=== PATIENT | male | born 1960 | race Caucasian/White ===

== ENCOUNTER 2020-05-07 15:14 | Emergency (ER) | payer SELFPAY ==
[~2020-05-07] VITALS: Ht 177.8 cm; Wt 79.4 kg
[2020-05-07] MEDS ORDERED: ONDANSETRON HCL INJ 2MG/ML 2ML 2 MG/ML VIAL IV STA (15:30)
[2020-05-07] MEDS ORDERED: MORPHINE SULFATE 2 MG/ML SYR 1ML IV STA (15:30)
--- NOTE | 2020-05-07 16:17 | Diagnostic Imaging Report ---
X-ray 3 views of the hand. HISTORY: Pain. COMPARISON: None available. FINDINGS/IMPRESSION: There is dislocation of the small finger proximal interphalangeal joint. Intra-articular osseous fragments may represent associated fractures. Mild regional soft tissue swelling around the dislocation. Signed by: Rob Gamboa MD on 05/07/2020 4:14 PM
--- NOTE | 2020-05-07 17:18 | Diagnostic Imaging Report ---
X-ray : 3 views of the left small finger. HISTORY: Follow-up Finger dislocation. COMPARISON: None available. FINDINGS/IMPRESSION: Close reduction of dislocated small finger proximal interphalangeal joint now in anatomic alignment. There is curvilinear cortical fragment seen on the oblique view which likely represents associated fracture. Signed by: Rob Gamboa MD on 05/07/2020 5:15 PM
--- NOTE | 2020-05-07 17:35 | Emergency Department Note ---
History of Present Illnes History of Present Illness Chief Complaint: General Medicine Complaints History of Present Illness This is a 60 year old male Patient in from home with complaints of left 5th digit pain that started about 20 minutes prior to arrival. Patient reports that he was playing football with a family member and he went to catch a ball that was thrown quite hard and his finger got in the way. Patient's left 5th digit is bent at an unnatural angle. No bruising or broken skin noted. Patient rates pain 9/10. Historian: Patient Arrival Mode: [employer] Required: No Onset (how long ago): minute(s) Location: LEFT 5TH FINGER Quality: PAIN Radiation: Reports non-radiation Severity: severe Onset quality: sudden Timing of current episode: constant Chronicity: new Context: Reports trauma/injury; Denies recent illness Relieving factors: none Exacerbating factors: none Associated symptoms: Reports denies other symptoms Past Medical/Family History Physician Review I have reviewed the patient's past medical and family history. Any updates have been documented here. Past Medical History Recent Fever: No Clinical Suspicion of Infectio: No New/Unexplained Change in Ment: No Past Medical History: Kidney Stones, Hyperlipedemia Other Surgery: prostate surgery Social History Smoking Cessation: Never Smoker Counseling Performed: No Alcohol Use: Occasional Any Illegal Drug Use: No TB Exposure/Symptoms: No Physically hurt or threatened: No Family History Family history of heart diseas: No Other Any Pre-Existing Lines (PICC,: No Review of Systems Review of Systems Constitutional: Reports no symptoms EENTM: Reports no symptoms Cardiovascular: Reports no symptoms Respiratory: Reports no symptoms Gastrointestinal: Reports no symptoms Genitourinary: Reports no symptoms Musculoskeletal: Reports as per HPI Integumentary: Reports no symptoms Neurological: Reports no symptoms Psychological: Reports no symptoms Endocrine: Reports no symptoms Hematological/Lymphatic: Reports no symptoms Physical Exam Related Data Allergies: Coded Allergies: No Known Allergies (Unverified , 05/07/20) Triage Vital Signs Vital Signs Date Time Temp Pulse Resp B/P (MAP) Pulse Ox O2 Delivery O2 Flow Rate FiO2 05/07/20 15:21 98.1 104 17 157/92 100 Room Air Vital signs reviewed: Yes Physical Exam CONSTITUTIONAL Constitutional: Present well-developed, Present well-nourished HENT HENT: Present normocephalic, Present atraumatic, Present oropharynx clear/moist, Present nose normal HENT L/R: Present left ext ear normal, Present right ext ear normal EYES Eyes: Reports PERRL, Reports conjunctivae normal NECK Neck: Present ROM normal PULMONARY Pulmonary: Present effort normal, Present breath sounds normal CARDIOVASCULAR Cardiovascular: Present regular rhythm, Present heart sounds normal, Present capillary refill normal, Present normal rate GASTROINTESTINAL Abdominal: Present soft, Present nontender, Present bowel sounds normal GENITOURINARY Genitourinary: Present exam deferred SKIN Skin: Present warm, Present dry MUSCULOSKELETAL Musculoskeletal: Present other (LEFT 5TH FINGER WITH ANGULATION LATERALLY AT PIP JOINT C/W DISLOCATION, DECR ROM AT THAT JOINT) NEUROLOGICAL Neurological: Present alert, Present oriented x 3, Present no gross motor or sensory deficits PSYCHOLOGICAL Psychological: Present mood/affect normal, Present judgement normal Results Imaging Imaging results reviewed: Yes Impressions X-ray 3 views of the hand. HISTORY: Pain. COMPARISON: None available. FINDINGS/IMPRESSION: There is dislocation of the small finger proximal interphalangeal joint. Intra-articular osseous fragments may represent associated fractures. Mild regional soft tissue swelling around the dislocation. Signed by: Rob Gamboa MD on 05/07/2020 4:14 PM X-ray : 3 views of the left small finger. HISTORY: Follow-up Finger dislocation. COMPARISON: None available. FINDINGS/IMPRESSION: Close reduction of dislocated small finger proximal interphalangeal joint now in anatomic alignment. There is curvilinear cortical fragment seen on the oblique view which likely represents associated fracture. Signed by: Rob Gamboa MD on 05/07/2020 5:15 PM Procedures Orthopedic Joint Reduction Joint: Joint #1 (LEFT 5TH PIP) Time out performed: Yes Side: left Joint reduction location: finger Shoulder technique used (if ap: traction/counter-traction Post-reduction neuor exam: intact Post-reduction vascular exam: intact Post-reduction xrays obtained: Yes Xray results: reduced Splint applied: Yes Patient tolerated procedure: no complications Assessment & Plan Medical Decision Making MDM XRAY R/O FX VS DISLOCATION Reassessment Reassessment F/U DR MASSEY TOMORROW, SPLINT, TYL/MOTRIN Assessment & Plan Final Impression: (1) Dislocation of proximal interphalangeal joint of left little finger Depart Disposition: HOME, SELF-CARE Last Vital Signs Date Time Temp Pulse Resp B/P (MAP) Pulse Ox O2 Delivery O2 Flow Rate FiO2 05/07/20 15:21 98.1 104 17 157/92 100 Room Air Medications in the ED Morphine Sulfate 4 mg ONCE STAT IV Last administered on 05/07/20at 15:45; Admin Dose 4 MG; Start 05/07/20 at 15:30; Stop 05/07/20 at 15:35; Status DC Ondansetron HCl 4 mg ONCE STAT IV Last administered on 05/07/20at 15:45; Admin Dose 4 MG; Start 05/07/20 at 15:30; Stop 05/07/20 at 15:35; Status DC NIKKI PERRY MD May 07, 2020 17:35
== END 2020-05-07 17:23 | disposition home or self-care (01) ==
LOC: ER 15:34
DX: S63.287A Dislocation of proximal interphalangeal joint of left little finger, initial encounter (principal); W21.01XA Struck by football, initial encounter; Y93.61 Activity, american tackle football; Y92.008 Other place in unspecified non-institutional (private) residence as the place of occurrence of the external cause; E78.5 Hyperlipidemia, unspecified; Z87.442 Personal history of urinary calculi
CPT/HCPCS: 26770; 73130; 73140; 99284; J2270; J2405